=== PATIENT | male | born 1940 | race Caucasian/White ===

== ENCOUNTER 2023-08-26 16:28 | Outpatient (CLI) | payer MEDICARE | END 2023-08-26 16:29 | disposition critical access hospital (66) | LOC: EMS 16:28 | DX: R29.810 Facial weakness (principal); R47.81 Slurred speech; I48.91 Unspecified atrial fibrillation; Z79.01 Long term (current) use of anticoagulants | CPT/HCPCS: A0425; A0429 ==

== ENCOUNTER 2023-08-26 17:00 | Emergency (ER) | payer MEDICARE ==
--- NOTE | 2023-08-26 17:06 | ED Physician Documentation ---
History of Present Illness - Stated complaint Stated Complaint: FACIAL DROOP - History obtained from History obtained from: Patient - Additonal information Additional information: 82-year-old gentleman with history of atrial fibrillation who is anticoagulated with Eliquis and states he has been compliant with that presents with what sounds like a TIA. He had a several minute episode of drowsiness and his daughter reports a right facial droop during that. He is completely resolved now. PD PAST MEDICAL HISTORY - Past Medical History Cardiovascular: Congestive heart failure, Hypertension - Present Medications Home Medications: Ambulatory Orders Medication Instructions Recorded Confirmed Apixaban [Eliquis] 5 mg PO DAILY 08/26/23 08/26/23 Atorvastatin [Lipitor] 20 mg PO QPM 08/26/23 08/26/23 Furosemide [Lasix] 20 mg PO DAILY 08/26/23 08/26/23 Metoprolol Succinate [Toprol Xl] 25 mg PO DAILY 08/26/23 08/26/23 - Allergies Allergies/Adverse Reactions: Allergies Allergy/AdvReac Type Severity Reaction Status Date / Time No Known Drug Allergies Allergy Verified 08/26/23 17:30 PD ED PE NORMAL - Vitals Vital signs reviewed: Yes - General General: Alert and oriented X 3, No acute distress - HEENT HEENT: PERRL, EOMI - Neck Neck: Supple, no meningeal sign, No bony TTP - Cardiac Cardiac: Other (irreg no murmur) - Respiratory Respiratory: No respiratory distress, Clear bilaterally - Abdomen Abdomen: Non tender - Neuro Neuro: Alert and oriented X 3, Other ( at 5:05 PM NIHSS Zero) Results - Vitals Vitals: Vital Signs - 24 hr 08/26/23 08/26/23 17:13 18:52 Temperature 36.4 C L Heart Rate 67 62 Respiratory 18 20 Rate Blood Pressure 148/82 H 156/92 H O2 Saturation 98 95 Oxygen O2 Source Room air - EKG (time done) 1713 EKG releavant findings:: EKG personally interpreted by author of this note. Relevant findings are: Rate: Rate (enter#) (58) Rhythm: Atrial fibrillation [place]: Normal QRS: Low voltage Ischemia: Normal ST segments - Labs Labs: Laboratory Tests 08/26/23 08/26/23 15:09 15:09 WBC 5.5 RBC 4.30 L Hgb 14.1 Hct 41.9 L MCV 97.4 H MCH 32.8 H MCHC 33.7 RDW 13.2 Plt Count 142 MPV 11.6 H Neut # (Auto) 2.6 Lymph # (Auto) 1.9 [place] # (Auto) 0.9 Eos # (Auto) 0.1 Baso # (Auto) 0.0 Absolute Nucleated RBC 0.00 Nucleated RBC % 0.0 Sodium 139 Potassium 3.6 Chloride 102 Carbon Dioxide 28 Anion Gap 9.0 BUN 20 Creatinine 1.3 Estimated GFR (MDRD) 53 L Glucose 94 Calcium 9.9 Total Bilirubin 0.6 AST 20 ALT 13 Alkaline Phosphatase 36 L Total Protein 6.3 L Albumin 4.0 Globulin 2.3 Albumin/Globulin Ratio 1.7 - Rads (name of study) CT of the head was unremarkable. Relevant Findings:: Final report received, EMP independent interpretation of test CT angiography of the head demonstrates 40 to 50% carotid narrowing bilaterally and other incidental findings. Relevant Findings:: Final report received, EMP independent interpretation of test PD Medical Decision Making - ED course ED course: 82-year-old gentleman who had a TIA tonight. It was just brief and the daughter confirms that he had difficulty shuffling the cards with his left hand while he was playing general me and a left facial droop lasting about 3 minutes. There is no word finding difficulty. Workup in the emergency department demonstrates unremarkable labs with relatively normal CBC and CMP and CT head and angiography were unremarkable save mild carotid disease. He is maximally medically managed being anticoagulated in the setting of A-fib and was given close return precautions. Departure - Departure Disposition: 01 Home, Self Care Clinical Impression: TIA (transient ischemic attack) Condition: Good Record reviewed to determine appropriate education?: Yes Instructions: ED Transient Ischemic Attack Comments: You are seen tonight for a transient ischemic attack/TIA. Given that you have A-fib you are at high risk for this and for future stroke, but you are "maximally medically managed." Being on the Eliquis. You should definitely continue your Eliquis and follow-up with your doctor to make sure that your blood pressure and cholesterol are optimized. He did have mild narrowing of each carotid at 40 to 50% bilaterally, and this should be kept an eye on by your primary care physician. Return for new or worsening symptoms. Note to H IM: Patient requests records be copied to Dr. Toy Sharp associated with [facility] and Dr. Mary Harman, cardiology, also associated with [facility]. Forms: PCP List Discharge Date/Time: 08/26/23 18:52
[2023-08-26] MEDS ORDERED: iohexoL-300 100 ML VIAL ONE (17:14)
[2023-08-26 17:16] LABS: BASOPHILS % (AUTO) 0.4 %; EOSINOPHILS # (AUTO) 0.1 10^3/uL (0.0-0.7); EOSINOPHILS % (AUTO) 1.3 %; HCT - HEMATOCRIT 41.9 % (42.0-52.0); HGB - HEMOGLOBIN 14.1 g/dL (14.0-18.0); LYMPHOCYTES # (AUTO) 1.9 10^3/uL (1.5-3.5); LYMPHOCYTES % (AUTO) 34.7 %; MEAN CORPUSCULAR HEMOGLOBIN 32.8 pg (27.0-31.0); MEAN CORPUSCULAR HGB CONC 33.7 g/dL (32.0-36.0); MEAN CORPUSCULAR VOLUME 97.4 fL (80.0-94.0); MEAN PLATELET VOLUME 11.6 fL (7.4-11.4); MONOCYTES # (AUTO) 0.9 10^3/uL (0.0-1.0); MONOCYTES % (AUTO) 16.2 %; NEUTROPHILS # (AUTO) 2.6 10^3/uL (1.5-6.6); PLT - PLATELET COUNT 142 10^3/uL (130-450); RED CELL DISTRIBUTION WIDTH 13.2 % (12.0-15.0); WHITE BLOOD COUNT 5.5 x10^3/uL (4.8-10.8)
[2023-08-26 17:50] LABS: ALBUMIN/GLOBULIN RATIO 1.7 (1.0-2.2); BILIRUBIN,TOTAL 0.6 mg/dL (0.2-1.0); CALCIUM 9.9 mg/dL (8.5-10.3); CREATININE 1.3 mg/dL (0.6-1.3); POTASSIUM 3.6 mmol/L (3.5-4.5); TOTAL PROTEIN 6.3 g/dL (6.4-8.9)
[2023-08-26] MEDS: iohexoL-300 100 ML VIAL IVP ONE (18:13)
--- NOTE | 2023-08-26 18:24 | CT Report ---
PROCEDURE: Head WO INDICATIONS: TIA TECHNIQUE: Noncontrast 4.5 mm thick angled axial sections acquired from the foramen magnum to the vertex. For r adiation dose reduction, the following was used: automated exposure control, adjustment of mA and/or kV according to patient size. COMPARISON: Correlation is made with the accompanying imaging. FINDINGS: Image quality: Excellent. CSF spaces: Basal cisterns are patent. No extra-axial fluid collections. Ventricles are normal in size and shape. Brain: No midline shift. No intracranial masses or hemorrhage. Freire-white matter interface is norm al. Age-appropriate brain parenchymal volume loss and chronic small vessel ischemic change can be see n. Apparent remote infarctions can be seen involving the anterior left frontal lobe. Skull and face: Calvarium and visualized facial bones are intact, without suspicious lesions. In th is patient with this given history, scrutiny is given to courses of the facial nerves, including with in the parotid glands. To the limits of this study, no abnormalities can be seen within these regions . Sinuses: Visualized sinuses and mastoids are clear. IMPRESSION: No acute intracranial pathology. If there is strong clinical concern for a stroke, please consider a dedicated brain MRI for further e valuation (assuming that there is no contraindication to MRI). Reviewed by: Luis Austin MD on 08/26/2023 5:23 PM [facility] Approved by: Luis Austin MD on 08/26/2023 5:23 PM [facility] Station ID: [id number]
--- NOTE | 2023-08-26 18:27 | CT Report ---
PROCEDURE: Angio Head/Neck INDICATIONS: TIA TECHNIQUE: After the administration of intravenous contrast, 1 mm thick sections acquired from the aortic arch t hrough the [place]. 3-dimensional iduadps-kgdqcjlnz-kdyjyskzzn (MIP) and/or volume renderin g reformats were acquired of the central intracranial vasculature and neck separately. For radiation dose reduction, the following was used: automated exposure control, adjustment of mA and/or kV acco rding to patient size. CONTRAST: 80ml omni 300 COMPARISON: Correlation is made with the accompanying imaging. FINDINGS: Image quality: Diagnostic. HEAD CT: CSF Spaces: Basal cisterns are patent. No extra-axial fluid collections. Ventricles are normal in size and shape. Brain: No significant abnormality is seen for scanning technique. Skull and face: Calvarium and visualized facial bones appear intact, without suspicious lesions. Sinuses: Visualized sinuses and mastoids are clear. HEAD CT ANGIOGRAPHY: Anterior circulation: Intracranial internal carotid arteries are normal in size and flow. Note is m marilee of a diminutive right A1 segment, with a correspondingly robust left A1 segment. This is consider ed to be a developmental variant of no clinical consequence. The flow within the paired anterior cer ebral arteries is otherwise normal and symmetric. The flow within the middle cerebral arteries is no rmal and symmetric. The anterior communicating artery is seen. No aneurysms are seen. Posterior circulation: The visualized portions of the vertebral arteries demonstrate normal caliber, and join to form a normal appearing basilar artery. Incidental note is made of a prominent right p osterior communicating artery, with a diminutive right P1 segment. This is attributed to a type origin of the right posterior cerebral artery, which is considered to be a developmental variant of typically no clinical consequence. The flow within the posterior cerebral arteries is normal and sy mmetric. No stenoses, occlusions, or aneurysms. NECK CT ANGIOGRAPHY: Carotid system: Incidental note is made of a common trunk off of the aorta of the right brachiocepha lic artery and the left common carotid artery (bovine type aortic arch). This is considered to be a d evelopmental variant of typically no clinical consequence. The origins of the common carotid arteri es appear patent. The common carotid arteries demonstrate normal caliber and courses. The bifurcati on regions are both demonstrate atherosclerotic irregularity and calcification. 40-50% narrowing can be seen on each side. The more distal internal carotid arteries demonstrate normal course and caliber . Posterior circulation: The origins of the vertebral arteries both appear widely patent. The more banks perior extracranial portions of both vertebral arteries also demonstrate normal courses and calibers. The right vertebral artery is dominant to the left. Soft tissues: Visualized neck soft tissues demonstrate no suspicious abnormalities. In this patient with this given history, scrutiny is given to the courses of the facial nerves, including within the parotid glands. No masses or abnormal enhancement can be seen within these regions. Bones: No suspicious bony lesions. Visualized cervical spine appears normally aligned. Moderate ce rvical spine degenerative change can be seen. IMPRESSION: No significant intracranial arterial abnormality is seen. 40-50% narrowing can be seen involving each carotid bifurcation region. Additional findings: [place] developmental anomalies Moderate cervical spine degenerative change Bovine type aortic branching pattern The estimate of stenosis included in the report of the imaging study was calculated using the NASCET method Reviewed by: Luis Austin MD on 08/26/2023 5:26 PM [facility] Approved by: Luis Austin MD on 08/26/2023 5:26 PM [facility] Station ID: [id number]
[2023-08-26 18:54] VITALS: BP 156/92; O2SAT 95
== END 2023-08-26 18:52 | disposition home or self-care (01) ==
LOC: ED 17:00
DX: G45.9 Transient cerebral ischemic attack, unspecified (principal); I48.91 Unspecified atrial fibrillation; Z79.01 Long term (current) use of anticoagulants; I10 Essential (primary) hypertension
CPT/HCPCS: 36415; 70450; 70496; 70498; 80053; 85025; 93005; 99284; Q9967